=== PATIENT | female | born 1970 | race Caucasian/White ===

== ENCOUNTER 2023-03-19 17:54 | Emergency (ER) | payer MEDICAID ==
[~2023-03-19] VITALS: Ht 160 cm; Wt 63.5 kg
[2023-03-19] MEDS ORDERED: IBUPROFEN 400 MG TABLET ONE (19:31)
[2023-03-19] MEDS: IBUPROFEN 400 MG TABLET PO ONE (19:34)
[2023-03-19] MEDS ORDERED: CIPR2.5D14 LEFTEYE ×2 (19:56→20:23)
[2023-03-19] MEDS ORDERED: IBUP-1955 PO ×2 (19:56→20:23)
[2023-03-19] MEDS ORDERED: LIDOCAINE 5% (PATCH) 1 EA PATCH TP ONE ×2 (20:21→20:25)
[2023-03-19] MEDS: LIDOCAINE 5% (PATCH) 1 EA PATCH TP ONE (20:25)
[2023-03-19 20:33] VITALS: BP 144/98; TEMP 98.4; O2SAT 100
== END 2023-03-19 20:36 | disposition home or self-care (01) ==
LOC: ER 17:54
DX: R07.89 Other chest pain (principal); H10.9 Unspecified conjunctivitis; M25.562 Pain in left knee; Z88.0 Allergy status to penicillin
CPT/HCPCS: 71100-TC